=== PATIENT | female | born 1935 | race African-American/Black ===

== ENCOUNTER 2017-05-12 13:38 | Emergency (ER) | payer OTHER, MEDICAID ==
[~2017-05-12] VITALS: Ht 152.4 cm; Wt 40.8 kg
[2017-05-12 13:38] VITALS: BP 0/0
[2017-05-12] MEDS ORDERED: NALOXONE HCL 1MG/ML 2ML SYRINGE IV ONE (13:39)
[2017-05-12] MEDS ORDERED: CALCIUM CHLOR(10%) 100MG/ML 10ML SYRINGE IV ONE (13:39)
[2017-05-12] MEDS ORDERED: SODIUM BICARBONATE 8.4% INJ 50ML SYRINGE IV ONE (13:39)
[2017-05-12] MEDS ORDERED: EPINEPHrine HCL 1 MG/10 ML SYRG IV ONE (13:39)
== END 2017-05-12 15:50 | disposition expired ==
LOC: ER 13:38
DX: I46.9 Cardiac arrest, cause unspecified (principal)
CPT/HCPCS: 92950; 99291; J0171; J2310